=== PATIENT | male | born 1970 | race Caucasian/White ===

== ENCOUNTER → 2016-05-24 | Emergency (ER) | payer SELFPAY ==
[~2016-05-24] VITALS: Ht 175.3 cm; Wt 86.0 kg
[2016-05-24 15:13] LABS: HEMATOCRIT 43.3 % (38.0-50.0); MCHC 36.3 G/DL (30.0-36.0); MCV 85.6 FL (86-99); PLATELET COUNT 266 K/uL (156-360); RBC DIS.WIDTH-CV 13.7 % (11.8-14.6); RBC DIS.WIDTH-SD 42.2 % (39-53); RED BLOOD COUNT 5.06 M/uL (4.00-5.50); WHITE BLOOD COUNT 8.4 K/uL (4.1-10.2)
[2016-05-24 15:23] LABS: CHLORIDE 103 mEq/L (99-109); POTASSIUM 4.2 mEq/L (3.7-5.4); SODIUM 139 mEq/L (136-147)
[2016-05-24 15:25] LABS: GLUCOSE 86 mg/dL (70-99)
[2016-05-24 15:27] LABS: ANION GAP 8 MEQ/L (2-14)
[2016-05-24 15:29] LABS: GFR ESTIMATE (CALCULATED) > 59 mL/min/
[2016-05-24 15:30] LABS: UREA NITROGEN (BUN) 12 mg/dL (9-23)
[2016-05-24 15:37] LABS: TROP-I INTERPRETATION NEGATIVE; TROPONIN-I < 0.01 ng/mL (0.0-0.30)
[2016-05-24 17:23] VITALS: BP 111/69
== END | disposition home or self-care (01) ==
LOC: EME 14:27 → RME 14:27
PROVIDERS: Nurse Practitioner Family
DX: H53.8 Other visual disturbances (principal); R51 Headache; R07.2 Precordial pain; R06.02 Shortness of breath; H93.13 Tinnitus, bilateral
CPT/HCPCS: 70470; 71020; 80048; 84484; 85027; 93005; 99281; 99284